=== PATIENT | female | born 1965 | race Caucasian/White ===

== ENCOUNTER 2017-07-28 05:53 | Emergency (ER) | payer OTHER ==
[~2017-07-28] VITALS: Ht 154.9 cm; Wt 93.0 kg
[2017-07-28] MEDS ORDERED: GLIPIZIDE 5 MG TABLET (06:10)
[2017-07-28] MEDS ORDERED: CEPHALEXIN 500 MG CAPSULE (06:10)
--- NOTE | 2017-07-28 06:26 | ED Back Pain ---
General Chief Complaint: Hip/Pelvic Problems Stated Complaint: LOWER BACK PAIN INTO HIP Nursing Triage Note: Patient reports she was sleeping on couch and woke up with her lower back hurting radiating to R hip Nursing Sepsis Screen: No Definite Risk Source of Information: Patient Exam Limitations: No Limitations History of Present Illness Date Seen by Provider: Jul 28, 2017 Time Seen by Provider: 06:21 Initial Comments This 52-year-old white female presents with complaint of low back pain that she noted yesterday afternoon when she awoke from sleep. The patient had been sleeping in a weird position on her couch. The patient noted low back pain in the right lumbar region. Fortunately the patient had no associated radiation of the pain, numbness or weakness and the lower extremities, fever, chill, dysuria, frequency, or flank pain. The patient's pain was exacerbated at work by lifting heavy boxes. Recent past medical history of significance includes urinary tract infection for which she took Keflex over the last 5 days. Allergies and Home Medications Allergies Coded Allergies: codeine (Verified Allergy, Unknown, 07/28/17) Patient Home Medication List Home Medication List Reviewed: Yes Constitutional: No chills, No fever EENTM: no symptoms reported Respiratory: no symptoms reported Cardiovascular: no symptoms reported Gastrointestinal: No abdominal pain, No nausea Genitourinary: No dysuria, No frequency Musculoskeletal: back pain (right lower lumbar region) Skin: No rash Psychiatric/Neurological: No Symptoms Reported Past [id number] Hx Past Med/Social Hx: Reviewed Nursing Past Med/Soc Hx Patient Social History Alcohol Use: Denies Use Recreational Drug Use: No Smoking Status: Never a Smoker Recent Foreign Travel: No Contact w/Someone Who Travel: No Recent Infectious Disease Expo: No Recent Hopitalizations: No Physical Abuse: No Sexual Abuse: No Past Medical History Surgeries: Yes (tyroid tumor) Gallbladder Respiratory: No Cardiac: No Neurological: No Genitourinary: No Gastrointestinal: No Musculoskeletal: No Endocrine: Yes Diabetes, Non-Insulin dep HEENT: No Cancer: No Psychosocial: No Nursing Suicide Risk Score: 0 Integumentary: No Physical Exam Vital Signs Vital Signs - First Documented 07/28/17 06:05 Temp 98.2 Pulse 73 Resp 18 B/P (MAP) 124/61 (82) Pulse Ox 97 Capillary Refill : Less Than 3 Seconds General Appearance: WD/WN, Mild Distress HEENT: Normal ENT Inspection Neck: Normal Inspection Cardiovascular: Regular Rate, Rhythm Respiratory: Lungs Clear Gastrointestinal: Normal Bowel Sounds, Non Tender, Soft Back: Normal Inspection, No CVA Tenderness, Muscle Spasm, Vertebral Tenderness (there is muscle spasm and tenderness to palpation over the right lower lumbar region.) Extremity: Normal Inspection, Normal Range of Motion, Non Tender Neurologic/Psychiatric: Alert, Oriented x3, No Motor/Sensory Deficits, Normal Mood/Affect Skin: Normal Color, Warm/Dry Progress/Results/Core Measures Lab Results Laboratory Tests Test 07/28/17 06:58 Range/Units Urine Color YELLOW Urine Clarity CLEAR Urine pH 5 5-9 Urine Specific [place] 1.025 H 1.016-1.022 Urine Protein 1+ H NEGATIVE Urine Glucose (UA) NEGATIVE NEGATIVE Urine Ketones 1+ H NEGATIVE Urine Nitrite NEGATIVE NEGATIVE Urine Bilirubin NEGATIVE NEGATIVE Urine Urobilinogen 1 NORMAL MG/DL Urine Leukocyte Esterase 1+ H NEGATIVE Urine RBC (Auto) 1+ H NEGATIVE Urine RBC RARE /HPF Urine WBC NONE /HPF Urine Squamous Epithelial Cells RARE /HPF Urine Crystals NONE /LPF Urine Bacteria NEGATIVE /HPF Urine Casts NONE /LPF Urine Mucus NEGATIVE /LPF Urine Culture Indicated NO My Orders Orders - SOPHIA EARL MD Ua Culture If Indicated (07/28/17 06:13) Lumbar Spine - 2-3 Views (07/28/17 06:20) Vital Signs/I&O 07/28/17 06:05 Temp 98.2 Pulse 73 Resp 18 B/P (MAP) 124/61 (82) Pulse Ox 97 Blood Pressure Mean: 82 Progress Note : Time: 06:26 Progress Note The patient declined medication emergency department. LS-spine films and a UA were ordered. 7:25 am. LS spine films on my interpretation demonstrated minor degenerative changes but no acute pathology. The lab indicated the patient's UA failed to demonstrate evidence of a urinary tract infection. Departure Impression Primary Impression: Back pain Qualified Codes: M54.5 - Low back pain Disposition: 01 HOME, SELF-CARE Condition: Unchanged Departure-Patient Inst. Decision time for Depature: 07:26 Referrals: NO,LOCAL PHYSICIAN (PCP/Family) Primary Care Physician Patient Instructions: Back Stretches Standing or Seated Add. Discharge Instructions: Homeopathic medicines as you elect to use. Ice and/or heat to the low back. Back stretching as possible. Close follow-up with your primary care physician, Dr. Tani Jacinto, in [place]. Come back if any problems or questions. All discharge instructions reviewed with patient and/or family. Voiced understanding. SOPHIA EARL MD Jul 28, 2017 06:26
[2017-07-28 07:04] LABS: BILIRUBIN,URINE NEGATIVE (NEGATIVE); CLARITY,URINE CLEAR; COLOR,URINE YELLOW; GLUCOSE, URINE (UA) NEGATIVE (NEGATIVE); KETONES,URINE 1+ (NEGATIVE); LEUKOCYTE ESTERASE ,URINE 1+ (NEGATIVE); NITRITE,URINE NEGATIVE (NEGATIVE); PH,URINE 5 (5-9); PROTEIN,URINE 1+ (NEGATIVE); UROBILINOGEN,URINE 1 MG/DL (NORMAL)
[2017-07-28 07:26] LABS: BACTERIA,URINE NEGATIVE /HPF; RBC,URINE RARE /HPF
[2017-07-28 07:27] LABS: SQUAMOUS EPITHELIAL CELL,UR RARE /HPF
--- NOTE | 2017-07-28 08:05 | Diagnostic Imaging Report ---
INDICATION: Low back pain. Three views were obtained. FINDINGS: The alignment is normal. The vertebral body heights are well-maintained. There is no spondylolysis or spondylolisthesis. No fractures are identified. There are minimal degenerative changes. IMPRESSION: Minimal lumbar spondylosis, otherwise unremarkable. Dictated by: Dictated on workstation # [id number]
[2017-07-28 12:46] VITALS: BP 125/85
== END 2017-07-28 07:55 | disposition home or self-care (01) ==
LOC: EDUNIT# 05:53 → ER 05:58
DX: M54.5 Low back pain (principal); E11.9 Type 2 diabetes mellitus without complications; Z86.03 Personal history of neoplasm of uncertain behavior; Z88.5 Allergy status to narcotic agent
CPT/HCPCS: 72100; 81000